=== PATIENT | female | born 1995 | race African-American/Black ===

== ENCOUNTER 2017-08-27 15:42 | Emergency (ER) | payer SELFPAY ==
[~2017-08-27] VITALS: Ht 162.6 cm; Wt 68.0 kg
[2017-08-27 15:44] VITALS: BP 114/69; PULSE 119; RESP 16; TEMP 103; O2SAT 98
[2017-08-27 17:13] LABS: AUTOMATED NEUTROPHIL # 8.4 TH/MM3 (1.8-7.7); BASOPHIL % 0.3 % (0.0-2.0); HEMATOCRIT 37.6 % (35.0-46.0); HEMO FLAGS DIFF FINAL; LYMPH % 12.9 % (9.0-44.0); LYMPHOCYTE # 1.4 TH/MM3 (1.0-4.8); MEAN CELL VOLUME 89.6 FL (80.0-100.0); MEAN CORPUSCULAR HEMOGLOBIN 30.2 PG (27.0-34.0); MEAN CORPUSCULAR HGB CONC 33.7 % (32.0-36.0); MONO % 8.4 % (0.0-8.0); NEUT % 78.4 % (16.0-70.0); PLATELET COUNT 246 TH/MM3 (150-450); RED CELL DISTRIBUTION WIDTH 14.3 % (11.6-17.2); WHITE BLOOD COUNT 10.7 TH/MM3 (4.0-11.0)
[2017-08-27 17:23] LABS: BACTERIA, URINE MANY /hpf; BLOOD, URINE MOD (NEG); COMMENT (UR) CULTURE INDICATED; CULTURE IF INDICATED CULTURE INDICATED; GLUCOSE,URINE NEG (NEG); KETONE, URINE NEG (NEG); MUCUS URINE FEW /lpf (OCC); NITRITE,URINE POS (NEG); SQUAMOUS EPITHELIAL CELL URINE 4 /hpf (0-5); URINE COLOR YELLOW (YELLW/STRAW)
[2017-08-27] MEDS ORDERED: ACETAMINOPHEN 325 MG TAB PO ONE (17:30)
[2017-08-27] MEDS ORDERED: SODIUM CHLOR 0.9% 1000 ML INJ 1,000 ML IV ONE (17:30)
[2017-08-27] MEDS ORDERED: cefTRIAXone INJ 1,000 MG in SODIUM CHLORIDE 0.9% INJ 100 ML IV ONE (17:30)
[2017-08-27 17:32] LABS: BICARBONATE 26.5 MEQ/L (21.0-32.0); POTASSIUM 3.7 MEQ/L (3.5-5.1)
[2017-08-27] MEDS ORDERED: MACR100C2 PO (17:38)
--- NOTE | 2017-08-27 17:40 | PD ---
HPI . Pubic pain Chief Complaint: Complaint Time Seen by Provider: 17:20 Travel History International Travel<30 days: No Contact w/Intl Traveler<30days: No Traveled to known affect area: No History of Present Illness HPI This patient presents with a chief complaint of suprapubic and back pain associated with a fever. Onset was today. She states that she has a history of frequent UTIs and started having symptoms of a UTI week ago. She tried to treated at home with increased fluids and cranberry tablets. Her urinary symptoms subsided but she developed the suprapubic pain, back pain and fever today. She subsequently presented here for evaluation and treatment. Her temperature is 103. She denies any associated vaginal discharge or bleeding. She has not had any vomiting. [facility] Social History Tobacco Use: No Allergies-Medications (Allergen,Severity, Reaction): Coded Allergies: No Known Allergies (Unverified , 08/27/17) Reported Meds & Prescriptions Reported Meds & Active Scripts Active Macrobid (Nitrofurantoin Monoh/Nitrofur Macro) 100 Mg Cap 100 Mg PO BID 7 Days Review of Systems Except as stated in HPI: all other systems reviewed are Neg General / Constitutional: Positive: Fever, Chills Gastrointestinal: No: Nausea, Vomiting Genitourinary: Positive: Pelvic Pain Musculoskeletal: Positive: Myalgias Physical Exam Narrative Vital Signs Date Time Temp Pulse Resp B/P (MAP) Pulse Ox O2 Delivery O2 Flow Rate FiO2 08/27/17 15:44 103.0 119 16 114/69 (84) 98 GENERAL: Patient looks like she does not feel well. SKIN: warm/dry. HEAD: Normocephalic. Atraumatic. EYES: Pupils equal and round. No scleral icterus. No injection or drainage. ENT: No nasal bleeding or discharge. Mucous membranes pink and moist. NECK: Trachea midline. Full range of motion without pain.. CARDIOVASCULAR: Sinus tachycardia. RESPIRATORY: No accessory muscle use. Clear to auscultation. Breath sounds equal bilaterally. GASTROINTESTINAL: Abdomen soft. Suprapubic tenderness. Bowel sounds present. Nondistended. MUSCULOSKELETAL: No obvious deformities. Diffuse back tenderness. NEUROLOGICAL: Awake and alert. No obvious cranial nerve deficits. Motor grossly within normal limits. Normal speech. PSYCHIATRIC: Appropriate mood and affect; insight and judgment normal. Data Data Last Documented VS Vital Signs Date Time Temp Pulse Resp B/P (MAP) Pulse Ox O2 Delivery O2 Flow Rate FiO2 08/27/17 18:56 08/27/17 15:44 103.0 119 16 98 Orders Orders Basic Metabolic Panel (Bmp) (08/27/17 16:03) Complete Blood Count With Diff (08/27/17 16:03) Urinalysis - C+S If Indicated (08/27/17 16:03) Ed Urine Pregnancytest Poc (08/27/17 16:03) Urine Culture (08/27/17 16:45) Ceftriaxone Inj (Rocephin Inj) (08/27/17 17:30) Sodium Chlor 0.9% 1000 Ml Inj (Ns 1000 M (08/27/17 17:30) Acetaminophen (Tylenol) (08/27/17 17:30) Ed Discharge Order (08/27/17 18:21) Labs Laboratory Tests Test 08/27/17 16:45 White Blood Count 10.7 TH/MM3 Red Blood Count 4.20 MIL/MM3 Hemoglobin 12.7 GM/DL Hematocrit 37.6 % Mean Corpuscular Volume 89.6 FL Mean Corpuscular Hemoglobin 30.2 PG Mean Corpuscular Hemoglobin Concent 33.7 % Red Cell Distribution Width 14.3 % Platelet Count 246 TH/MM3 Mean Platelet Volume 7.9 FL Neutrophils (%) (Auto) 78.4 % Lymphocytes (%) (Auto) 12.9 % Monocytes (%) (Auto) 8.4 % Eosinophils (%) (Auto) 0.0 % Basophils (%) (Auto) 0.3 % Neutrophils # (Auto) 8.4 TH/MM3 Lymphocytes # (Auto) 1.4 TH/MM3 Monocytes # (Auto) 0.9 TH/MM3 Eosinophils # (Auto) 0.0 TH/MM3 Basophils # (Auto) 0.0 TH/MM3 CBC Comment DIFF FINAL Differential Comment Urine Color YELLOW Urine Turbidity CLOUDY Urine pH 6.0 Urine Specific [place] 1.020 Urine Protein 30 mg/dL Urine Glucose (UA) NEG mg/dL Urine Ketones NEG mg/dL Urine Occult Blood MOD Urine Nitrite POS Urine Bilirubin NEG Urine Urobilinogen LESS THAN 2.0 MG/DL Urine Leukocyte Esterase LARGE Urine RBC 32 /hpf Urine WBC /hpf Urine WBC Clumps FEW Urine Squamous Epithelial Cells 4 /hpf Urine Amorphous Sediment RARE Urine Bacteria MANY /hpf Urine Mucus FEW /lpf Microscopic Urinalysis Comment CULTURE INDICATED Blood Urea Nitrogen 13 MG/DL Creatinine 0.85 MG/DL Random Glucose 103 MG/DL Calcium Level 9.1 MG/DL Sodium Level 137 MEQ/L Potassium Level 3.7 MEQ/L Chloride Level 102 MEQ/L Carbon Dioxide Level 26.5 MEQ/L Anion Gap 9 MEQ/L Estimat Glomerular Filtration Rate 86 ML/MIN MDM Medical Decision Making Medical Screen Exam Complete: Yes Emergency Medical Condition: Yes Differential Diagnosis Differential diagnosis of pelvic pain includes but is not limited to UTI, PID, ectopic , spontaneous AB, constipation, viral illness Narrative Course This patient presents with suprapubic pain associated with fever. She had symptoms of urinary tract infection last week. CBC & BMP Diagram 08/27/17 16:45 Calcium Level 9.1 UA>>pos nitrite, large LE, 32 RBCs, innumerable WBCs, many bact. I will treat her with a liter of IV fluids and Rocephin 1 g IV. She will then be discharged on Macrobid. Sepsis Criteria SIRS Criteria (2 or more): Temp > 100.9 or < 96.8, Heart rate over 90 Sepsis Criteria (SIRS+source): Infect source susp/known Criteria Outcome: Meets SIRS criteria, Meets sepsis criteria Diagnosis Primary Impression: Sepsis Qualified Codes: A41.9 - Sepsis, unspecified organism Additional Impression: Urinary tract infection Qualified Codes: N30.01 - Acute cystitis with hematuria Patient Instructions: General Instructions, Sepsis (DC), Urinary Tract Infection in Women (DC) Med/Other Pt SpecificInfo: Prescription(s) given Scripts Nitrofurantoin Monohydrate Macrocrystals (Macrobid) 100 Mg Cap 100 MG PO BID for Infection for 7 Days, #14 CAP 0 Refills Prov: Sophie Boone MD 08/27/17 Disposition: DISCHARGE HOME Condition: Stable Sophie Boone MD Aug 27, 2017 17:39
== END 2017-08-27 18:57 | disposition home or self-care (01) ==
LOC: NEPD 15:42
DX: N30.01 Acute cystitis with hematuria (principal); A41.9 Sepsis, unspecified organism; B96.20 Unspecified Escherichia coli [E. coli] as the cause of diseases classified elsewhere
CPT/HCPCS: 80048; 81001; 84703; 85025; 87077; 87086; 87186; 96365; 99284; J0696; J7030

== ENCOUNTER 2018-01-14 02:19 | Emergency (ER) | payer SELFPAY ==
[~2018-01-14] VITALS: Ht 162.6 cm; Wt 65.0 kg
[~2018-01-14 02:19] MED LIST: MACR100C2 PO
[2018-01-14 02:24] VITALS: BP 125/63; PULSE 81; RESP 18; TEMP 98.2; O2SAT 100
[2018-01-14] MEDS ORDERED: DEXAMETHASONE SOD PHOS 20 MG/5 ML VIAL IM ONE (02:45)
[2018-01-14] MEDS ORDERED: PRED20 PO (02:57)
--- NOTE | 2018-01-14 02:57 | PD ---
HPI Chief Complaint: Skin Problem Time Seen by Provider: 02:32 Travel History International Travel<30 days: No Contact w/Intl Traveler<30days: No Traveled to known affect area: No History of Present Illness HPI Patient is a 22-year-old female presenting to the emergency room for evaluation of hives. Patient states it started 3 days ago, they only occur at night. When it does occur she takes 50 mg of Benadryl which alleviates the symptoms. She reports a history of the same when she was a child after a hot shower when she got heated. She denies any contact with any new soaps, lotions, foods, detergents etc. She denies any shortness of breath or wheezing. She states that she feels slightly itchy now but is better after the Benadryl. She denies any significant medical history otherwise. Symptom onset was gradual, symptom severity is mild. Symptoms are alleviated with Benadryl. PFSH Past Medical History Medical History: Denies Significant Hx Diminished Hearing: No Tetanus Vaccination: < 5 Years Influenza Vaccination: No ?: Not LMP: 12/21/2017 Past Surgical History Ear Surgery: Yes (right ear, and nose keloid skin removal) Social History Alcohol Use: No Tobacco Use: No Substance Use: No Allergies-Medications (Allergen,Severity, Reaction): Coded Allergies: No Known Allergies (Unverified , 01/14/18) Reported Meds & Prescriptions Reported Meds & Active Scripts Active Macrobid (Nitrofurantoin Monoh/Nitrofur Macro) 100 Mg Cap 100 Mg PO BID 7 Days Review of Systems Except as stated in HPI: all other systems reviewed are Neg Skin: Positive Itching, Positive Hives Physical Exam Narrative GENERAL: Well-developed, well-nourished, alert -[place] female. Presenting in no acute distress. SKIN: Warm and dry. Scattered hives on bilateral upper biceps, no other hives noted. HEAD: Normocephalic. EYES: No scleral icterus. No injection or drainage. NECK: Supple, trachea midline. No JVD or lymphadenopathy. CARDIOVASCULAR: Regular rate and rhythm without murmurs, gallops, or rubs. RESPIRATORY: Breath sounds equal bilaterally. No accessory muscle use. GASTROINTESTINAL: Abdomen soft, non-tender, nondistended. MUSCULOSKELETAL: No cyanosis, or edema. BACK: Nontender without obvious deformity. No CVA tenderness. Data Data Last Documented VS Vital Signs Date Time Temp Pulse Resp B/P (MAP) Pulse Ox O2 Delivery O2 Flow Rate FiO2 01/14/18 02:24 98.2 81 18 125/63 (83) 100 Orders Orders Dexamethasone Inj (Decadron Inj) (01/14/18 02:45) MDM Medical Decision Making Medical Screen Exam Complete: Yes Emergency Medical Condition: Yes Interpretation(s) Vital Signs Date Time Temp Pulse Resp B/P (MAP) Pulse Ox O2 Delivery O2 Flow Rate FiO2 01/14/18 02:24 98.2 81 18 125/63 (83) 100 Differential Diagnosis Dermatitis versus allergic reaction versus heat sensitivity versus other Narrative Course Patient is a well-appearing 22-year-old female presented for evaluation of hives that have been occurring at night for the last 3 days. Symptoms are alleviated with Benadryl. They do not occur during the day. Patient's vital signs are stable, there is no wheezing on exam. Patient will be given an injection of dexamethasone IM now. She was encouraged to continue using Benadryl as needed and as directed for itching. She was advised that the hives may be related to environmental allergen. She verbalized understanding of these instructions. Patient is stable for discharge. Diagnosis Primary Impression: Hives Referrals: Primary Care Physician 2 days Patient Instructions: General Instructions, Urticaria (GEN) Additional Instructions: Take medications as directed Take Benadryl as needed and as directed for itching Return to emergency department for any new or worsening symptoms Follow-up with your primary doctor Med/Other Pt SpecificInfo: Prescription(s) given Scripts Prednisone (Prednisone) 20 Mg Tab 20 MG PO BID for 5 Days, #10 TAB 0 Refills Prov: Aviva Melgar 01/14/18 Disposition: 01 DISCHARGE HOME Condition: Stable Aviva Melgar Jan 14, 2018 02:57
== END 2018-01-14 03:57 | disposition home or self-care (01) ==
LOC: NEPD 02:19
DX: L50.9 Urticaria, unspecified (principal)
CPT/HCPCS: 96372; 99283; J1100